=== PATIENT | male | born 1995 | race Caucasian/White ===

== ENCOUNTER 2016-04-07 22:04 | Emergency (ER) | payer SELFPAY ==
[~2016-04-07] VITALS: Ht 177.8 cm; Wt 91.8 kg
[2016-04-08 01:02] VITALS: BP 135/80
== END 2016-04-08 01:23 | disposition home or self-care (01) ==
LOC: EME 22:04 → EXP 22:04
DX: S82.142A Displaced bicondylar fracture of left tibia, initial encounter for closed fracture (principal); X58.XXXA Exposure to other specified factors, initial encounter; F17.200 Nicotine dependence, unspecified, uncomplicated
CPT/HCPCS: 73564; 99281; 99283

== ENCOUNTER 2017-03-25 23:25 | Emergency (ER) | payer OTHER ==
[~2017-03-25] VITALS: Ht 175.3 cm; Wt 101.5 kg
[2017-03-26] MEDS ORDERED: PEN-VEE K,VEET500 MG PO (00:59)
[2017-03-26] MEDS ORDERED: MEDROL DOSEPAK4 MG PO (00:59)
[2017-03-26 01:46] VITALS: BP 119/78
== END 2017-03-26 01:48 | disposition home or self-care (01) ==
LOC: EME 23:25
PROVIDERS: Physician Assistant
DX: J02.0 Streptococcal pharyngitis (principal)
CPT/HCPCS: 87502; 87651 90; 99281; 99283; J7512